=== PATIENT | female | born 1995 | race Two or more races ===

== ENCOUNTER 2023-03-04 03:18 | Inpatient (IN) | payer OTHER ==
[~2023-03-04] VITALS: Ht 165.1 cm; Wt 3.2 kg
[2023-03-04] MEDS ORDERED: FOLIC ACID0.8 M1 PO (03:28)
[2023-03-04] MEDS ORDERED: INTEGRA PLUS C1 EACH PO (03:28)
[2023-03-04] MEDS ORDERED: PRENATAL TABLE1 EAC1 PO (03:29)
[2023-03-07] MEDS ORDERED: IBUPROFEN800 MG PO (10:38)
== END 2023-03-07 13:56 | disposition home or self-care (01) | DRG 788 ==
LOC: LDR 03:18 → O/R 18:00 → OB/GYN 19:46
PROVIDERS: ADMIT Obstetrics & Gynecology; ATTEND Obstetrics & Gynecology
PROC: 4A1HXCZ Monitoring of Products of Conception, Cardiac Rate, External Approach (ICD-10-PCS; 2023-03-04)
PROC: 10D00Z1 Extraction of Products of Conception, Low, Open Approach (ICD-10-PCS; principal; 2023-03-04 17:15)
DX: O33.8 Maternal care for disproportion of other origin (principal); Z3A.37 37 weeks gestation of pregnancy; Z37.0 Single live birth; Z20.822 Contact with and (suspected) exposure to COVID-19